=== PATIENT | male | born 1935 | race Caucasian/White ===

== ENCOUNTER 2017-07-15 11:57 | Emergency (ER) | payer OTHER ==
[~2017-07-15] VITALS: Ht 185.4 cm; Wt 99.8 kg
[~2017-07-15 11:57] MED LIST: ACETAMINOPHEN325 M1 PO; ADULT LOW DOSE81 MG PO; ALBUTEROL2.5 MG/0.5 INH; ALLOPURINOL 30300 M2 PO; ALLOPURINOL 30300 M3 PO; ARICEPT 5 MG TAB5 MG PO; ARICEPT10 M1 PO; AUGMENTIN 875875 MG PO; AZITHROMYCIN 2250 MG; AZITHROMYCIN 2250 MG PO; B12INJ INJECTION; CEFTIN500 MG PO; COLACE 100 MG100 MG PO; COLACE100 MG PO; COUMADIN 3 MG TA3 M1 PO; COUMADIN 3 MG TA3 MG PO; COUMADIN 4 MG TA4 M1 PO; COZAAR 50 MG TA50 M1; DIOVAN160 MG PO; FISH OIL 1,2001 EAC4 PO; FISHOIL; GAVILAX17 GM PO; GLUCOPHAGE XR500 MG PO; HYDROCERIN CREA1 JAR TOP; LOPRESSOR 50 MG50 M1 PO; LOPRESSOR50 PO; LOW DOSE ASPIRI81 M1 PO; METFORMIN HCL500 MG PO; MILK OF MA2400 MG/10 PO; MUCINEX TA600 MG/TA2 PO; NIASPAN; NIASPAN ER 101000 M1 PO; NORCO 5-325 TA1 EACH PO; NOVOLOG100 UNIT/1 SUBQ; OSTEO BI-FLEX1 EACH PO; PERCOCET 7.5-31 EACH PO; PLAVIX 75 MG TA75 MG; PREDNISONE 20 M20 M1 PO; PREDNISONE 5 MG5 M1 PO; PROTONIX40 M2 PO; TOPROL XL50 MG PO; TRAMADOL 50 MG50 MG PO; VICODIN 5-5001 EACH PO; VITAMIN D-32000 UNIT PO; VITAMIN D400 UNI1; ZOCOR 20 MG TAB20 M1 PO; ZOCOR20 MG PO; ZOLOFT 50 MG TA50 M1 PO; ZOLOFT100 MG PO; ZOLOFT50 MG PO
[2017-07-15] MEDS ORDERED: ROBAXIN500 MG PO (13:41)
[2017-07-15] MEDS ORDERED: TRAMADOL 50 MG50 MG PO (13:41)
== END 2017-07-15 13:58 | disposition home or self-care (01) ==
LOC: ER 11:57
DX: S00.12XA Contusion of left eyelid and periocular area, initial encounter (principal); M50.10 Cervical disc disorder with radiculopathy, unspecified cervical region; M47.892 Other spondylosis, cervical region; M10.9 Gout, unspecified; I10 Essential (primary) hypertension; E78.5 Hyperlipidemia, unspecified; F03.90 Unspecified dementia, unspecified severity, without behavioral disturbance, psychotic disturbance, mood disturbance, and anxiety; I48.2 Chronic atrial fibrillation; E11.9 Type 2 diabetes mellitus without complications; Z95.5 Presence of coronary angioplasty implant and graft; Z90.49 Acquired absence of other specified parts of digestive tract; Z88.1 Allergy status to other antibiotic agents; Z88.8 Allergy status to other drugs, medicaments and biological substances; W19.XXXA Unspecified fall, initial encounter; Y93.89 Activity, other specified; Y92.89 Other specified places as the place of occurrence of the external cause; Y99.8 Other external cause status

== ENCOUNTER 2018-01-15 11:23 | Inpatient (IN) | payer OTHER ==
[~2018-01-15] VITALS: Ht 180.3 cm; Wt 98.7 kg
--- NOTE | ~2018-01-15 | EKG ---
[address] [address] ELECTROCARDIOGRAM REPORT Name: CHRISTY SUN Room #: 418-P ADM IN M.R.#: [id number] Admission: 01/15/18 Attend Phys: Ferdinand Mata MD Discharge: Date of : 37 Report #: [id number] THIS REPORT FOR: //name// [facility] ED Test Date: 2018-01-15 Test Time: 12:18:02 Pat Name: CHRISTY SUN Department: Room: 418 Gender: M Document Examiner: Ann Marie BENZ : 1935 Requested By: Edwin Calderón Order Number: [id number] MD: Saqib Montes Measurements Intervals [place] Rate: 96 P: PA: QRS: 158 QRSD: 104 T: 49 QT: 373 QTc: 472 Interpretive Statements Atrial fibrillation Inferior infarct, old Compared to ECG 09/23/2016 10:20:08 Ventricular premature complex(es) no longer present Electronically Signed On 01-16-2018 14:03:21 CDT by Saqib Montes [email or web address] <ELECTRONICALLY SIGNED> By: Saqib Montes MD, [facility] 01/16/18 1403 17 Saqib Montes MD, [facility] /EPI
[~2018-01-15 11:23] MED LIST changes: +ROBAXIN500 MG PO
[2018-01-15 11:24] VITALS: BP 104/76
[2018-01-15 11:44] LABS: BE(vivo) 2.8 mmol/L (-2 to +3); HCO3 27.5 mmol/L (22.0-26.0); PCO2 42.3 mmHg (35.0-45.0); PO2 64.1 mmHg (80.0-100.0); pH 7.431 (7.360-7.450)
[2018-01-15 12:02] LABS: ABSOLUTE NEUTROPHILS 4.1 thou/uL (1.4-8.2); BASOPHILS 0.9 % (0.0-2.0); EOSINOPHILS 2.7 % (0.0-3.0); HEMATOCRIT 43.9 % (42.0-52.0); HEMOGLOBIN 15.1 gm/dL (14.0-18.0); LYMPHOCYTES 15.6 % (24.0-44.0); MCH 31.1 pg (26.0-34.0); MCHC 34.4 g/dL (28.0-37.0); MCV 90.6 fL (80.0-100.0); MONOCYTES 7.5 % (1.0-8.0); PLATELET COUNT 103 thou/uL (150-400); POLYS 73.3 % (36.0-66.0); RBC 4.85 mil/uL (4.50-6.00); RDW 13.9 % (10.5-14.5); WBC 5.6 thou/uL (4.0-11.0)
[2018-01-15 12:12] LABS: ANION GAP 6 mmol/L (7-16); BUN 18 mg/dL (7-18); CALCIUM 9.4 mg/dL (8.5-10.1); CHLORIDE 100 mmol/L (98-107); CO2 28 mmol/L (21-32); CREATININE 1.1 mg/dL (0.7-1.3); GLUCOSE 170 mg/dL (74-106); POTASSIUM 4.1 mmol/L (3.5-5.1); SODIUM 134 mmol/L (136-145)
[2018-01-15 12:16] LABS: INR 1.2; PROTIME 12.2 Seconds (9.3-11.4)
[2018-01-15 12:21] LABS: ALBUMIN 2.8 g/dL (3.4-5.0); SGOT 23 U/L (15-37); SGPT 24 U/L (30-65); TOTAL PROTEIN 6.3 g/dL (6.4-8.2); TROPONIN-I < 0.04 ng/mL (<0.06)
[2018-01-15 14:26] VITALS: BP 129/79
[2018-01-15 15:25] VITALS: BP 120/81
[2018-01-15 15:30] VITALS: BP 122/86
[2018-01-15 19:29] VITALS: BP 156/85
[2018-01-16] MEDS ORDERED: ASPIR 8181 MG PO (01:09)
[2018-01-16] MEDS ORDERED: ZOLOFT100 MG PO (01:11)
[2018-01-16 04:32] VITALS: BP 10/64; BP 106/64
[2018-01-16 06:19] LABS: HEMATOCRIT 43.2 % (42.0-52.0); HEMOGLOBIN 14.7 gm/dL (14.0-18.0); MCH 31.2 pg (26.0-34.0); MCV 91.8 fL (80.0-100.0); RBC 4.71 mil/uL (4.50-6.00); RDW 14.6 % (10.5-14.5)
[2018-01-16 06:28] LABS: CALCIUM 9.4 mg/dL (8.5-10.1); CREATININE 0.9 mg/dL (0.7-1.3)
[2018-01-16 19:48] VITALS: BP 121/70
[2018-01-17 04:27] VITALS: BP 102/59
[2018-01-17 07:25] VITALS: BP 124/74
[2018-01-17 15:45] VITALS: BP 113/72
[2018-01-17 20:00] VITALS: BP 113/78
[2018-01-18 04:30] VITALS: BP 114/67
[2018-01-18 07:07] VITALS: BP 109/73
[2018-01-18] MEDS ORDERED: OSELB75 PO (09:02)
[2018-01-18 15:37] VITALS: BP 117/79
[2018-01-18 20:00] VITALS: BP 125/78
[2018-01-19 03:30] VITALS: BP 110/65
[2018-01-19 15:00] VITALS: BP 101/57
[2018-01-19 20:00] VITALS: BP 107/56
[2018-01-20 07:33] VITALS: BP 117/76
[2018-01-20 14:00] VITALS: BP 118/74
== END 2018-01-20 15:50 | DRG 152 ==
LOC: ER 11:23 → EROBS 12:46 → 4E 12:46
PROVIDERS: Emergency Medicine; Hospitalist
DX: J11.1 Influenza due to unidentified influenza virus with other respiratory manifestations (principal); E43 Unspecified severe protein-calorie malnutrition; E87.0 Hyperosmolality and hypernatremia; I48.2 Chronic atrial fibrillation; M10.9 Gout, unspecified; I10 Essential (primary) hypertension; F03.90 Unspecified dementia, unspecified severity, without behavioral disturbance, psychotic disturbance, mood disturbance, and anxiety; E78.5 Hyperlipidemia, unspecified; I25.2 Old myocardial infarction; Z95.5 Presence of coronary angioplasty implant and graft; Z88.1 Allergy status to other antibiotic agents; Z88.8 Allergy status to other drugs, medicaments and biological substances; Z79.899 Other long term (current) drug therapy; Z79.82 Long term (current) use of aspirin
CPT/HCPCS: 10183

== ENCOUNTER 2019-06-03 14:05 | Emergency (ER) | payer OTHER ==
[~2019-06-03] VITALS: Ht 185.4 cm; Wt 83.5 kg
[~2019-06-03 14:05] MED LIST changes: +ASPIR 8181 MG PO; +ELIQUIS5 MG PO; +HALDOL 0.5 MG0.5 MG PO; +KEFLEX500 M1 PO; +OSELB75 PO; +XARELTO15 MG PO
[2019-06-03] MEDS ORDERED: NORVASC2.5 MG PO (14:16)
[2019-06-03 16:03] LABS: HEMATOCRIT 45.8 % (42.0-52.0); HEMOGLOBIN 15.6 gm/dL (14.0-18.0); MCH 32.7 pg (26.0-34.0); MCHC 34.1 g/dL (28.0-37.0); MCV 95.7 fL (80.0-100.0); RBC 4.78 mil/uL (4.50-6.00); RDW 15.1 % (10.5-14.5); WBC 6.3 thou/uL (4.0-11.0)
[2019-06-03 16:10] LABS: CALCIUM 9.2 mg/dL (8.5-10.1); CREATININE 1.1 mg/dL (0.7-1.3)
[2019-06-03 16:19] LABS: POTASSIUM 4.5 mmol/L (3.5-5.1)
[2019-06-03 16:33] LABS: URINE BILIRUBIN NEGATIVE (Negative); URINE BLOOD NEGATIVE (Negative); URINE CLARITY CLEAR; URINE COLOR YELLOW; URINE GLUCOSE-RANDOM* NEGATIVE (Negative); URINE KETONES NEGATIVE (Negative); URINE LEUKOCYTES-REFLEX NEGATIVE (Negative); URINE NITRITE-REFLEX NEGATIVE (Negative); URINE PROTEIN (DIPSTICK) NEGATIVE (Negative)
[2019-06-03 16:43] LABS: AMP/METHAMP Negative (Negative); BARBITURATES Negative (Negative); BENZODIAZEPINES Negative (Negative); COCAINE Negative (Negative); METHADONE Negative (Negative); OPIATES Negative (Negative); PCP Negative (Negative)
[2019-06-04] MEDS ORDERED: KEFLEX500 M1 PO (21:44)
[2019-06-04 22:47] VITALS: BP 150/90
== END 2019-06-04 22:55 | disposition home or self-care (01) ==
LOC: ER 14:05
PROVIDERS: Emergency Medicine
DX: L03.313 Cellulitis of chest wall (principal); R44.1 Visual hallucinations; F03.90 Unspecified dementia, unspecified severity, without behavioral disturbance, psychotic disturbance, mood disturbance, and anxiety; M10.9 Gout, unspecified; I10 Essential (primary) hypertension; E11.9 Type 2 diabetes mellitus without complications; I48.2 Chronic atrial fibrillation; E78.5 Hyperlipidemia, unspecified; Z90.49 Acquired absence of other specified parts of digestive tract; Z95.5 Presence of coronary angioplasty implant and graft; Z88.1 Allergy status to other antibiotic agents; Z88.8 Allergy status to other drugs, medicaments and biological substances

== ENCOUNTER 2019-06-13 13:23 | Inpatient (IN) | payer OTHER ==
[~2019-06-13] VITALS: Ht 185.4 cm; Wt 85.2 kg
--- NOTE | ~2019-06-13 | D ---
[facility] [place] [address] DISCHARGE SUMMARY Name: CHRISTY SUN Room #: 519B-B DIS IN M.R.#: [id number] Admission: 06/13/19 Attend Phys: Ferdinand Kumar DO Discharge: 06/21/19 Date of : 37 Report #: [id number] THIS REPORT FOR: //name// CC: Ferdinand Bowen DATE OF SERVICE: 06/21/2019 INPATIENT PSYCHIATRIC DISCHARGE SUMMARY ATTENDING PHYSICIAN: Ferdinand Kumar D.O. AUTOMATIC PAINT SPRAYER OPERATOR: Arelis Russell M.D. DISCHARGE DIAGNOSES: Major neurocognitive disorder due to multiple etiologies with behavioral disturbance, improved. COMORBIDITIES: Diabetes mellitus type 2, on sliding scale insulin; hypertension, coronary artery disease, status post PCI, also got a history of AFib with slight thrombocytopenia. DISCHARGE DISPOSITION: Discharged to home, 17/05 care required. Family will arrange for attending care ____. DISCHARGE MEDICATIONS: Olanzapine 7.5 mg p.o. b.i.d., olanzapine 5 mg p.o. q.4 p.r.n., allopurinol 300 mg daily, metformin 500 mg p.o. daily, donepezil hydrochloride 10 mg p.o. daily, simvastatin 20 mg p.o. daily, acetaminophen 500 mg p.o. q.6 p.r.n. The family is engaged with [facility], which will begin services. Hospice currently will assume management of Ativan. During admission, Xarelto was discontinued given morbidities and fall risk. DIET: I believe 1800 calorie diabetic. I believe public health social worker set up appointment at [facility] for psychiatric care and I will double check here. Because the patient is on hospice, psychiatric care will be through the hospice company. REASON FOR ADMISSION: Was on hospice; [facility], which is , revoked hospice due to agitation, and most notably he had felt he had ticks, he was picking up scabs, difficult to console, been at [facility] recently and was not started on any medications. HOSPITAL COURSE: The patient was admitted to Geriatric Psychiatry Unit. They made the decision to maintain ____ with olanzapine, titrated to 15 mg daily, 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 Sleep and appetite, sleep is fairly good. Recommended placement in a facility; however, the wants him home. At his home, they are providing 24/7 care ____. Laboratories from this admission, UDS was negative. Urinalysis was generally good. His urine culture is from the 12th, which was negative. On day of discharge, vital signs: Temperature 36.7, pulse 84, respirations 18, BP 141/93, O2 sat 99%. MENTAL STATUS EXAMINATION: This is a well-developed, well-nourished, disheveled male, appearing at least stated age. Attention limited. Concentration limited. Speech is normal rate. Thought process linear, very limited. Thought content, delusional at times. ____ no specific focus. Denied SI or HI. Denied hopelessness, helplessness. Denied homicidal intent or plan. Denied suicidal intent or plan. Memory noted to be impaired. Insight limited. Judgment limited. Fund of knowledge below average. Prognosis for this patient is guarded given his comorbidities, dementia. By: [id number] Ferdinand Kumar, DO /nt
--- NOTE | ~2019-06-13 | EKG ---
[address] [address] ELECTROCARDIOGRAM REPORT Name: CHRISTY SUN Room #: 519B-B ADM IN M.R.#: [id number] Admission: 06/13/19 Attend Phys: Ferdinand Kumar DO Discharge: Date of : 37 Report #: [id number] THIS REPORT FOR: //name// [facility] Test Date: 2019-06-13 Test Time: 18:05:58 Pat Name: CHRISTY SUN Department: Room: [facility] Gender: M Fittings Tightener: Bright LOU : 1935 Requested By: Yarelis Cook Order Number: [id number] MD: Measurements Intervals [place] Rate: 83 P: [place]: QRS: 104 QRSD: 107 T: 12 QT: 402 QTc: 473 Interpretive Statements Atrial fibrillation Inferior infarct, old Baseline wander in lead(s) V3 Compared to ECG 07/01/2018 12:00:27 Ventricular premature complex(es) no longer present Myocardial infarct finding still present [email or web address] By: [id number] Ep[facility]any [facility], /EPI
[2019-06-13 13:23] VITALS: BP 113/74
[~2019-06-13 13:23] MED LIST changes: +NORVASC2.5 MG PO
[2019-06-13] MEDS ORDERED: OLANZAPINE2.5 MG PO (13:58)
[2019-06-13] MEDS ORDERED: ZOCOR20 MG PO (13:58)
[2019-06-13 14:30] LABS: ABSOLUTE NEUTROPHILS 4.5 thou/uL (1.4-8.2); EOSINOPHILS 3.2 % (0.0-3.0); HEMATOCRIT 42.9 % (42.0-52.0); HEMOGLOBIN 14.6 gm/dL (14.0-18.0); LYMPHOCYTES 21.8 % (24.0-44.0); MCH 32.3 pg (26.0-34.0); MCHC 34.1 g/dL (28.0-37.0); MCV 94.9 fL (80.0-100.0); MONOCYTES 6.3 % (1.0-8.0); PLATELET COUNT 111 thou/uL (150-400); POLYS 67.7 % (36.0-66.0); RBC 4.52 mil/uL (4.50-6.00); RDW 14.9 % (10.5-14.5); WBC 6.7 thou/uL (4.0-11.0)
[2019-06-13 14:40] LABS: CALCIUM 9.4 mg/dL (8.5-10.1); CREATININE 1.2 mg/dL (0.7-1.3)
[2019-06-13 15:46] LABS: URINE BILIRUBIN NEGATIVE (Negative); URINE BLOOD NEGATIVE (Negative); URINE CLARITY CLEAR; URINE COLOR YELLOW; URINE GLUCOSE-RANDOM* NEGATIVE (Negative); URINE KETONES NEGATIVE (Negative); URINE LEUKOCYTES-REFLEX NEGATIVE (Negative); URINE NITRITE-REFLEX NEGATIVE (Negative); URINE PROTEIN (DIPSTICK) NEGATIVE (Negative); URINE SPECIFIC GRAVITY 1.025 (1.005-1.035); URINE UROBILINOGEN 0.2 E.U./dl (0.2-1.0)
[2019-06-13 15:55] LABS: AMP/METHAMP Negative (Negative); BARBITURATES Negative (Negative); BENZODIAZEPINES Negative (Negative); COCAINE Negative (Negative); METHADONE Negative (Negative); OPIATES Negative (Negative); PCP Negative (Negative)
[2019-06-13 16:38] VITALS: BP 119/72
[2019-06-13] MEDS ORDERED: ZYPREXA 5 MG TAB5 M1 PO (17:44)
[2019-06-13] MEDS ORDERED: OLANZAPINE5 MG IM (17:45)
[2019-06-13] MEDS ORDERED: TYLENOL EXTRA500 MG PO (17:49)
[2019-06-13] MEDS ORDERED: TRAZODONE HCL50 MG PO (17:49)
[2019-06-13 18:12] VITALS: BP 140/80
--- NOTE | 2019-06-13 18:18 | NUR ---
PT ARRIVES TO FLOOR FROM ER VIA CART-ACCOMPNIED BY . LIVES WITH AND SHE REPORTS SHE HAS BEEN CARING FOR PT SINCE INITIAL DEMENTIA DX APPROX 7 YEARS AGO. WAS HOSPITALIZED AT [facility] APPROX 2 WEEKS AGO FOR BEHAVIORS CONSISTANT WITH THE BEHAVIORS LEADING TO THIS HOSPITAL STAY-TACTILE HALLUCINTATIONS FEELING TICS CRAWLING OVER BODY-SEES TICS ON HIM AND HAS MULTIPLE SCABBS ON ARMS AND LEGS FROM PICKING AT SKIN, ALSO REPORTS INCREASED IRRITABILTIY AND AGITATION AND RECENT POOR SLEEP. VS STABLE ON ADMIT BP 140/80- P87 PULSE OX 97 PERCENT,AMBULATES WITH SBA X 1 AND ROLLER WALKERE-ORIENTED TO NAME ONLY-NO ACUTE AGITATION OR AGGRESSION AT THIS TIME
[2019-06-13 19:50] VITALS: BP 110/66
--- NOTE | 2019-06-13 23:54 | NUR ---
NURSES NOTE - CHRISTY IS ALERT AND ORIENTED X1-2. HE ARRIVED ON THE UNIT PRIOR TO THIS NURSE ARRIVING FOR SHIFT. DURING ONE TO ONE WITH PATIENT HE DID REPORT SEEING AND FEELING 'TICKS' ALL OVER HIS BODY. HE HAS SEVERAL VISIBLE LACERATIONS FROM PT PICKING AT THESE TICKS. HE REPEATEDLY TOLD THIS NURSE 'LOOK THERES ONE HERE AND HERE, CANT YOU SEE THEM?.' HE ALSO REPORTS ITCHING ASSOCIATED WITH THESE. THIS NURSE ATTEMPTED TO REINFORCE THAT THIS NURSE COULD NOT VISUALIZE 'TICKS' AND THAT THEY APPEARED TO BE SCABS. HE DID NOT BELIEVE THIS RN'S ASSESSMENT. PATIENT THEN CLOSED EYES AND ASKED IF HE COULD REST, THIS NURSE OBLIGED. HE DID NOT APPEAR TO BE IN MEDICAL DISTRESS. NURSING WILL MAINTAIN ALL PRECAUTIONS TO ENSURE SAFETY AT ALL TIMES.
[2019-06-14 08:00] VITALS: BP 146/92
--- NOTE | 2019-06-14 08:30 | NUR ---
PT UP WITH WALKER, HAS AN ODOR OF URINE. PT CURSING AND WANTING TO KNOW WHERE TO SIT FOR BREAKFAST. PT LUNGS CLEAR. PT HAS SCABS TO ARMS AND LEFT LOWER EXT. PT STATED THEY ARE TICKS. PT DOES SMILE AT NURSES. WHEN PT GETS FRUSTRATED HE CURSES.
--- NOTE | 2019-06-14 10:51 | NUR ---
Assess due to low lavonne score 11. Newly admitted to [facility] unit for dementia an visual hallucinations. Picking at skin, scabs thinking tics present. Hx diabetes and on metformin. Wt hx shows stable wts 180-185 past year. Change diet to carb controlled otherwise low nutrition risk
--- NOTE | 2019-06-14 13:25 | NUR ---
PT WALKING TO ROOM TO USE TOILET. PT STATED HE DIDN'T THINK HE COULD MAKE IT. PT SITTING DOWN ON TOIELT AND HAD SOFT INCON. STOOL. PT YELLING AND CURSING. PT BACKUP OPERATOR GOING TO HELP PT PUT ON NEW BRIEF. PT YELLED AND SAID HE IS GOING TO HAVE A BM.
--- NOTE | 2019-06-14 13:33 | NUR ---
PT YELLING AND SAYING HE IS GOING TO FALL. WENT TO BATHROOM AND PT HOLDING ONTO THE SINK. ASSISTED PT TO TOILET AND GOT ON NEW BRIEF PANTS. HAD PT TO STAND AND PT GOT OUT OF BATHROOM THEN STARTED TO SIT ON FLOOR. GOT PT UP OUT OF FLOOR AND ONTO A W/C.
[2019-06-14 19:42] VITALS: BP 125/85
--- NOTE | 2019-06-15 02:37 | NUR ---
NURSES NOTE - CHRISTY IS ALERT AND ORIENTED X4, HE IS IRRITABLE UPON ASSESSMENT, INTIMADATING NURSING STAFF TO NOT ENTER HIS ROOM. HE STATED TO THIS RN 'GET THE HELL OUT OF MY ROOM, IM NOT TALKING TO YOU.' THIS NURSE ATTEMPTED TO ASK BASIC ASSESSMENT QUESTIONS WHICH HE REFUSED TO ANSWER AND BECAME MORE ANGRY. THIS NURSE EXITED THE ROOM. HE DID NOT APPEAR TO BE IN MEDICAL DISTRESS. WILL CONTINUE ALL PRECAUTIONS FOR SAFETY.
[2019-06-15 07:30] VITALS: BP 107/69
--- NOTE | 2019-06-15 07:40 | NUR ---
PT SITTING IN DINNING ROOM FOR BREAKFAST. PT CONVERSATION WITH OTHER RESIDENTS. PT TRYING TO HELP ANOTHER RESIDENT USE THEIR W/C. PT LUNGS CLEAR. PT HAS SCABS TO ARMS AND LOWER LEGS. PT THOUGHT THAT THEY WERE TICKS. NO PICKING BEHAVIOR SEEN THIS AM. PT USING WALKER THIS AM.
[2019-06-15 08:53] VITALS: BP 107/69
--- NOTE | 2019-06-15 15:35 | NUR ---
PT BEEN WALKING WITH WALKER TODAY. PT LAYED DOWN IN BED TO REST. PT TALKED TO ON THE PHONE. PT STATED HE WAS GOING TO REST AND PICK THEM TICKS OFF HIM. THIS NURSE ENSURED THAT THEY ARE NOT TICKS. STATED SHE DIDN'T KNOW WHERE THAT DELUSION CAME FROM.
[2019-06-15 20:00] VITALS: BP 137/84
[2019-06-15 23:11] VITALS: BP 137/84
--- NOTE | 2019-06-16 03:51 | NUR ---
PT LOUD AND PERIODICALLY DEMANDING, BUT RESPONDED WELL TO GENTLE REDIRECTION. OUT WITH PEERS EARLY IN THE SHIFT, AND GETS AROUND WELL WITH WALKER. CONFUSED AT TIMES. BELIEVES HE DROVE HERE AND THAT HIS CAR IS OUTSIDE IN THE PARKING LOT. ATTEMPTED TO CALL , BUT LINE WAS BUSY. HOPING TO GO HOME SOON. TOOK TYLENOL FOR LEG PAIN AT HS. HAS SLEPT WELL TO THIS POINT IN THE AM.
[2019-06-16 07:30] VITALS: BP 134/85
--- NOTE | 2019-06-16 15:55 | NUR ---
ASSUME PT CARE AT 0730. PT BEEN WALKING WITH WALKER TODAY.VSS ON RA. MORNING MEDS GIVEN. HAS ORDER TO LOCKOUT OF ROOM FOR MEALS AND GROUPS. PT WAS UP FOR MEALS AT DINNING ROOM AND ATTENDED GROUPS. ENCOURAGED TO. PT LAYED DOWN IN BED TO REST AT 1500. PT TALKED TO ON THE PHONE. REASSESSMENT PER CHART. PT STILL HAS DELLUSIONING PICK TICKS OFF HIM. HAS SOME SKIN TEARS ON RIGHT HAND AND OLD SCABBED ON BOTH LEGS. . WOUND CARE CONSULT. TUBGRIPS ON BOTH ARMS. NOTIFIED DR. YODER AND OBTAINED ORDER FOR PRN SEROQUEL. PT WAS COOPERATIVE BUT HAS SOME CONFUSION AND WANTS TO GO HOME. MADE ROUND AND ADJUST INSULIN ORDER. BS MONITOR AND GIVE METFORMIN ORDERED. OFFERED SUPPORTIVE CARE. AND DAUGHTER VISIT WITH PT AT THIS MOMENT AND AWARES OF NEW ORDER SEROQUEL PRN FOR ANXIETY AND DELUSION. WILL CONTINUE TO MONITOR AND CHECK FREQUENTLY FOR NEEDS AND SAFETY.
--- NOTE | 2019-06-16 16:03 | NUR ---
WOUND CONSULT; SIMPLE SKIN TEARS TO THE RIGHT HAND WERE IDENTIFIED. NO S/S OF INFECTION. RECOMMENDATIONS; [employer] AG, DAILY/PRN RN PRESENT
--- NOTE | 2019-06-16 19:31 | NUR ---
PATIENT EXPERIENCING TACTILE AND VISUAL HALLUCINATIONS OF TICKS. ZYPREXA AT HS GIVEN EARLY FOR BEST PATIENT OUTCOME.
[2019-06-16 19:48] VITALS: BP 106/64
--- NOTE | 2019-06-17 06:34 | NUR ---
PATIENT BEGAN YELLING AND THREATENING STAFF WHEN STAFF ATTEMPTED TO CHANGE HIS BED R/T PATIENT URINATING THE BED. PATIENT MAY POSSIBLY REFUSE BED CHANGE R/T AGGRESSIVE BX.
[2019-06-17 10:07] VITALS: BP 149/92
--- NOTE | 2019-06-17 12:13 | NUR ---
PATIENT WAS IN BED SLEEPING WHEN CARE ASSUMED, APPROACHED BY THIS RN AND NOTIFIED HIM THAT IT IS TIME FOR BREAKFAST. PATIENT WAS IN AGREEMENT WHEN OFFERED TO ASSIST HIM GET DRESSED FOR BREAKFAST. PATIENT AMBULATED WITH ASSIST OF ROLLER WALKER TO THE DAY ROOM AFTER USING THE BATHROOM. HE FED SELF BREAKFAST, TOOK ALL MORNING MEDICATION WHOLE WITHOUT DIFFICULTY. PATIENT CONTINUE TO HAVE TACTILE HALLUCINATION, PICKING "TICS" OFF YELLOW SOCKS "CAN'T YOU SEE IT, IT'S ABOUT TO CRAWL ALL OVER ME AND BITE THE HELL OUT OF ME". PATIENT REDIRECTED, BUT THE TIC PERCEPTION IS REALITY FOR HIM. HE HAS BEEN CALM, COOPERATIVE WITH CARE. AFFECT IS BLUNTED, MOOD IS LABILE. PATIENT'S CONCERN TODAY IS "JUST WANT TO GET OUT OF HERE ALIVE". NO SIGN OF ACUTE DISTRESS NOTED AT THIS TIME. PATIENT DENIES SUICIDAL AND HOMOCIDAL IDEATION, WILL MONITOR FOR SAFETY.
[2019-06-17 19:20] VITALS: BP 112/72
--- NOTE | 2019-06-17 19:40 | H ---
[facility] [place] [address] HISTORY AND PHYSICAL Name: CHRISTY SUN Room #: 519B-B ADM IN M.R.#: [id number] Admission: 06/13/19 Attend Phys: Ferdinand Kumar DO Discharge: Date of : 37 Report #: [id number] THIS REPORT FOR: //name// CC: Ferdinand Bowen DATE OF SERVICE: 06/14/2019 INPATIENT PSYCHIATRIC EVALUATION ATTENDING PHYSICIAN: Ferdinand Kumar DO. SCALLOP CUTTER MACHINE: Ferdinand Mata MD REASON FOR ADMISSION: Reportedly picking up stabs, visual hallucinations. HISTORY OF PRESENT ILLNESS: This is an 83-year-old male, retirement resident. He states he lives at home. He apparently was admitted at [facility] 9 days ago, discharged 4 days ago. The family denied [facility] starting him on any new medications and states that the patient has worsening behavioral disturbance, visual hallucinations. The patient sees tics on him, frequently picking on them. PCP is Dr. Bowen. The patient is a poor historian. PAST MEDICAL HISTORY: Past history is limited includes gout, hypertension, hyperlipidemia, myocardial infarction x 2, cardiac stents, cholecystectomy, hard of hearing, diabetes, dementia, chronic atrial fibrillation. It should be noted that it looks like he is living at home and not in the nursing facility, so it is incorrect. Reported Home medications MEDICATIONS: metoprolol, allopurinol, metformin, donepezil, amlodipine olanzapine, simvastatin. ALLERGIES: CIPROFLOXACIN, CITALOPRAM CAUSES HALLUCINATIONS, QUINOLONES. SOCIAL HISTORY: Denied smoking, alcohol or illicit drugs. REVIEW OF SYSTEMS: Not obtainable due to his dementia. Weight 81.65 kilos. LABORATORY DATA: Sodium 140, potassium 4.0, chloride 105, bicarbonate 27, anion gap 8, BUN 16, creatinine 1.2, estimated GFR 58, glucose 123, calcium 9.4, white count 6.7, H and H 14.6 and 42.9, platelet count 111. UDS was negative. Urinalysis was negative. No recent imaging, head CT on 06/2017 did show atrophic changes, no microbiology this admission. [facility] [address] [place] [address] HISTORY AND PHYSICAL Name: CHRISTY SUN Room #: 519B-B ADM IN M.R.#: [id number] Admission: 06/13/19 Attend Phys: Ferdinand Kumar DO Discharge: Date of : 37 Report #: [id number] PHYSICAL EXAMINATION: VITAL SIGNS: Temperature 36.7, pulse 86, respirations 16, BP 146/92, O2 sat 92%. MUSCULOSKELETAL: Wheelchair bound, nonambulatory with numerous erythematous scattered areas. MENTAL STATUS EXAMINATION: This is a well-developed, fairly nourished desheveled appearing male, appearing stated age. Attention limited. Concentration limited. Speech is normal rate. Thought process linear and limited. Thought content focused on variable things. No psychomotor agitation or psychomotor retardation. Denied SI, denied HI. Some hopelessness, helplessness. Denied homicidal intent or plan. Memory noted to be impaired. Insight limited. Judgment limited. Fund of knowledge below average. FORMULATION: An 83-year-old male with known history of dementia. Presenting from home where he lives with his . I attempted to make contact with them. DIAGNOSES: Major neurocognitive disorder with behavioral disturbance. Medical comorbidities include hypertension. PLAN: Evaluate, stabilize, obtain collateral. Continue aspirin 325 mg p.o. daily, olanzapine was started 2.5 mg daily and increase this to 5 mg twice a day as patient was cursing nurses today, metoprolol tartrate 50 mg p.o. daily, metformin 500 mg p.o. daily, donepezil 5 mg p.o. daily, atorvastatin 20 mg p.o. daily, amlodipine 2.5 mg p.o. daily, allopurinol 300 mg p.o. daily, olanzapine 5 mg q. a.m. p.o. p.r.n., acetaminophen 500 mg q. 6 hours p.r.n. ESTIMATED LENGTH OF STAY: 10-14 days. STRENGTHS: Insured. WEAKNESSES: Advancing age, having a major neurocognitive disorder. <ELECTRONICALLY SIGNED> By: Ferdinand Kumar DO 06/17/191939 11 39 Ferdinand Kumar DO /nt
--- NOTE | 2019-06-17 22:58 | NUR ---
AT APPROXIMATELY 2230 PATIENT BEGAN MAKING HOMICIDAL STATEMENTS TOWARDS THIS NURSE AND THREATENING TO BODILY HARM THIS NURSE AND OTHERS. ZYPREXA IM 5MG PRN GIVEN FOR AGITATION.
--- NOTE | 2019-06-18 06:39 | NUR ---
PT SLEPT 6 HOURS
[2019-06-18 09:26] VITALS: BP 154/102
[2019-06-18 09:58] VITALS: BP 154/102
--- NOTE | 2019-06-18 10:05 | NUR ---
ASSUMED CARE AT 0700 THIS MORNING. PT. GOT UP FOR BREAKFAST. HE WAS COOPERATIVE WITH TAKING HIS MORNING MEDICATIONS. NO COMPLAINTS OFFERED. HE SAT AT THE TABLE AFTER BREAKFAST RESTING WITH HIS EYES CLOSED. HE DENIES SI/HI OR AVH AT THIS TIME. STAFF TO ASSIST PT. NEEDED. TOOK MEDICATIONS WITHOUT DIFFICULTIES NOTED. BLOOD SUGAR THIS MORNING WAS 153 AND RECEIVED 3 UNITS INSULIN. SITS ON THE UNIT BUT DOES NOT COOPERATE OR INTERACT WITH STAFF DURING MORNING GROUPS. HIS LUNGS ARE CTA, HRR. NO EDEMA NOT TO LE AT THIS TIME. DENIES SI/HI OR AVH AT THIS TIME.
[2019-06-18 19:47] VITALS: BP 104/50
--- NOTE | 2019-06-19 01:18 | NUR ---
PATIENT IN BED SINCE 1899. ASSESSMENT WNL. PATIENT IS CONFUSED AND A/O X 2. HAD TO AWAKEN PATIENT AT HS MED PASS TO TAKE MED. HE TOOK MED WITHOUT PROBLEM AND WENT BACK TO SLEEP. HE DENIES PAIN. PATIENT TALKS LOUD. HE WAS PLEASANT WHEN HE AWOKE FOR HS MED. PATIENT IN BED IN LOW POSITION. BED ALARM ON.
[2019-06-19 05:43] LABS: HEMATOCRIT 43.5 % (42.0-52.0); HEMOGLOBIN 14.9 gm/dL (14.0-18.0); MCH 32.6 pg (26.0-34.0); MCHC 34.2 g/dL (28.0-37.0); MCV 95.2 fL (80.0-100.0); RBC 4.56 mil/uL (4.50-6.00); RDW 14.8 % (10.5-14.5); WBC 5.8 thou/uL (4.0-11.0)
[2019-06-19 08:57] VITALS: BP 146/95
--- NOTE | 2019-06-19 11:46 | NUR ---
Assessment completed, he is alert, but confused he did eat breakfast this morning and no complaints of "ticks" in his food, he did drink 100% of his ensure as well. Has been propelling in the espinoza and dayroom in wheel chair. He was heard calling out for help and found by the bathroom in his room on the floor no injury noted Dr. Rea did arrive to find the patient, assisted up he stated his knee gave out. Smiling and having conversation with his room mate, no behavioral issues this a.m. Continue to monitor closely for safety, encourage to ask for help when needed.
--- NOTE | 2019-06-19 15:13 | NUR ---
WOUND CARE F/U; THE SKIN TEARS SHOW MARKED IMPROVEMENT TODAY. NO S/S OF INFECTION. NO CHANGES NECCESSARY. DISCUSSED WITH STAFF
[2019-06-19 20:17] VITALS: BP 111/59
[2019-06-19 22:47] VITALS: BP 111/59
--- NOTE | 2019-06-20 00:51 | NUR ---
PATIENT UP IN HIGH BACK WC IN DINING ROOM WHEN CAME ON TO SHIFT. PATIENT WAS IRRITABLE AT FIRST STATING THAT HE WAS "GOING HOME TONITE." WHEN TELLING HIM NO ONE WAS GOING HOME TONITE, HE BECAME IRRITATED AND AND FRUSTRATED AND STATED THAT HE WAS LEAVING BECAUSE THE NURSE TOLD HIM HE WAS LEAVING AT 2130 TONIGHT. I TOLD HIM I WOULD CHECK. I WALKED AWAY AND WHEN I CAME BACK TO GIVE HIM HIS HS MEDS HE WAS PLEASANT AND SMILING AND COOPERATIVE. PATIENT REFUSED HIS HS SNACK TONIGHT BUT DID DRINK EXTRA WATER. HIS HS GLUCOSE WAS 185. CALLED DR RODRIGUEZ AND HE SAID TO GIVE PATIENT 3U OF LISPRO SINCE NONE WAS GIVEN AT SUPPER. PATIENT WAS SEEN BY WOUND NURSE AND DRESSING APPLIED TO PICKING WOUNDS UP BILATERAL ARMS. ARM SLEEVES IN PLACE. RIGHT HAND SKIN TEAR HEALING BUT WAS OOZING SO CLEANED AREA WITH NS AND COVERED WITH GUAZE. NO PICKING AT ARMS OR LEGS TONITE. PATIENT A/0 X 1. POSSIBLE D/C LATER TODAY PER DR NOTES. BED IN LOW POSITION AND BED ALARM ON. CONTINUING TO MONITOR.
--- NOTE | 2019-06-20 06:36 | NUR ---
PATIENT REMAINS VERY AGITATED AND HITTING AND YELLING WHEN AWAKENED AND FIGHTS HAVING HIS BRIEFS CHANGED OR CHECKED. PATIENT TOOK 3 TO 4 PEOPLE IN EARLY MORNINGS TO CHANGE HIM D/T YELLING, THRASHING AND STRIKING OUT AT OTHERS. UNABLE TO REDIRECT OR CONSOLE. PT IMMEDIATELY SETTLES DOWN WHEN ABLE TO GO BACK TO SLEEP. PATIENT HAS AREA AROUND ANKLE AND RIGHT FOOT THAT APPEARS RED FROM WHERE HE HAS PICKED AT HIS SKIN AND A SCAB HAS FORMED. NOT HOT TO TOUCH OR SWOLLEN. SLEEVES REMAIN ON PATIENT'S ARMS WITH MULTIPLE DRESSINGS FROM WOUNDS FROM PATIENT PICKING AT SKIN. PATIENT BACK TO SLEEP AT THIS TIME.
[2019-06-20 08:39] VITALS: BP 108/66
--- NOTE | 2019-06-20 11:45 | NUR ---
Date of Admission: 06/13/19 Date of Activity Therapy Assessment: 06/16/19 Activity Goal: Increase engagement Initial Goal: 1 Group activity/day Weekly progress towards goal: Did not achieve goals Group participation level: Needs some assistance Behaviors observed: Patient is not actively participating in scheduled groups. Patient presents disoriented and is unable to gather focus for group participation. Plan: No change towards goal. Offer independent leisure activity if needed.
--- NOTE | 2019-06-20 12:54 | NUR ---
PT SITTING IN DINING ROOM TALKING WITH OTHER PT'S SMILING. DAMION VASQUEZ NOTED TO ARMS. PT IS NOT PICKING AT SELF AT THIS TIME. AMBULATES WITH WALKER. WILL CONT POC.
--- NOTE | 2019-06-20 16:55 | NUR ---
SW met with the pt daughter concerning hospice. pt family mention that would like to bring her home on hospice. SW arranged for the family to meet with hospice. Pt family decided to go with [facility]. Pt signed the documentation for pt to accepted into hospice. SW will follow-up with pt been d/c on tomorrow, June 21, 2019.
[2019-06-20 19:55] VITALS: BP 117/73
--- NOTE | 2019-06-21 01:31 | NUR ---
NURSES NOTE - CHRISTY IS ALERT AND ORIENTED X1-2. HE HAS BEEN UNCOOPERATIVE WITH THIS NURSE SINCE ASSUMING CARE. DURING MEDICATION PASS PATIENT WAS RESISTANT TO TAKING MEDICATION STATING 'I DONT KNOW WHAT THIS IS.' THIS NURSE ATTEMPTED TO PROVIDE EDUCATION AND REINFORCE THAT HE HAS TAKEN THE MEDICATION IN THE PAST. DURING THE DISCUSSION PATIENT BECAME LOUDER AND ANGRIER AND THEN STATED 'I WILL KILL YOU WHEN I LEAVE HERE, BELIEVE ME ON THAT ONE BLAYNE.' HE DID NOT REPORT SI OR HALLUCINATIONS. THIS NURSE HAS OBSERVED THROUGH THE NIGHT THAT HE HAS FULL CONVERSATIONS WITH HIMSELF AND ANOTHER PERSON THAT THIS NURSE CANNOT SEE. HE REFERS TO THIS PERSON 'BABE.' HE DID NOT REPORT SI OR HALLUCINATIONS, HE DENIED MEDICAL CONCERNS WITH NO S/S OF DISTRESS. NURSING WILL MAINTAIN ALL PRECAUTIONS TO ENSURE SAFETY AT ALL TIMES.
[2019-06-21 09:41] VITALS: BP 141/93
[2019-06-21 12:17] VITALS: BP 141/93
[2019-06-21] MEDS ORDERED: ZYPREXA 5 MG TAB5 M1 PO ×2 (12:23)
--- NOTE | 2019-06-21 12:52 | NUR ---
He is up in W/C alert and oriented x 1, he still believes he is at work and asked that I sign his time card and it wasn't fair he was "being forced to work OT", he is eating bites, but does not finish his meal, as he stated "I just found another tick" then he will stop eating, he does well with his supplement if he sees staff open it, no agitation or combative behavior noted tis shift. He is to be discharged to home today. Continue to monitor for safety concerns.
--- NOTE | 2019-06-21 13:34 | NUR ---
and son are here for transport to home, wounds are dressed to his hands, wound nurse took pictures as he happened to be here for dressing change, discharge instruction given to son and , escorted out per wheelchair to car, by [facility] nursing care partner.
--- NOTE | 2019-06-21 13:34 | NUR ---
WOUND CARE FOLLOW UP; DISCHARGE IS IN PROGRESS. THE WOUNDS ARE FRAGIALLY HEALED. NO S/ OF INFECTION. 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 MENTAL STATUS CHANGES ETC. RECOMMENDATION; COVER WOUNDS TO THE FOREARMS WITH BANDAIDS,DAILY CLENASE WITH NS OR WOUND CLEANSER. DISCUSSED WITH RN/ D/C PICS TAKEN
== END 2019-06-21 13:33 | disposition home or self-care (01) | DRG 884 ==
LOC: ER 13:23 → SBH 16:11 → EROBS 16:11 → SBH 16:39
PROVIDERS: Emergency Medicine; Internal Medicine; ADMIT Psychiatry & Neurology Psychiatry
DX: F01.51 Vascular dementia, unspecified severity, with behavioral disturbance (principal); R45.1 Restlessness and agitation; M10.9 Gout, unspecified; I10 Essential (primary) hypertension; E78.5 Hyperlipidemia, unspecified; E11.9 Type 2 diabetes mellitus without complications; I25.10 Atherosclerotic heart disease of native coronary artery without angina pectoris; D69.6 Thrombocytopenia, unspecified; I48.2 Chronic atrial fibrillation; I25.2 Old myocardial infarction; Z95.5 Presence of coronary angioplasty implant and graft; Z90.49 Acquired absence of other specified parts of digestive tract; Z79.84 Long term (current) use of oral hypoglycemic drugs; Z79.899 Other long term (current) drug therapy; Z88.1 Allergy status to other antibiotic agents; Z88.8 Allergy status to other drugs, medicaments and biological substances
CPT/HCPCS: 10880